=== PATIENT | male | born 1950 ===

== ENCOUNTER 2021-07-11 18:02 | Emergency (ER) | payer SELFPAY ==
[~2021-07-11] VITALS: Ht 172.7 cm; Wt 78.0 kg
[2021-07-11 18:11] VITALS: BP 129/73
--- NOTE | 2021-07-11 18:19 | NUR ---
PT REQUESTING MEDS TO
--- NOTE | 2021-07-11 19:34 | NUR ---
PT GIVEN F/U AND D/C INSTRUCTIONS WITH PRESCRIPTIONS AND JAIL NUMBERS/ADDRESSES AND INFORMATION. PT V/U. PT ALSO PROVIDED A CANE FOR ASSITANCE TO AMBULATE PER HIS REQUEST. PT AMBULATED TO DISCHARG DESK.
== END 2021-07-11 20:06 | disposition home or self-care (01) ==
LOC: ED 19:58
DX: R60.0 Localized edema (principal); I45.10 Unspecified right bundle-branch block; R00.0 Tachycardia, unspecified; Z72.9 Problem related to lifestyle, unspecified; Z76.0 Encounter for issue of repeat prescription; Z91.19 Patient's noncompliance with other medical treatment and regimen; I10 Essential (primary) hypertension; E11.9 Type 2 diabetes mellitus without complications
CPT/HCPCS: 93005; 99283